=== PATIENT | male | born 1945 | race Caucasian/White ===

== ENCOUNTER 2016-12-22 05:13 | Day surgery (SDC) | payer OTHER ==
[~2016-12-22] VITALS: Ht 182.9 cm; Wt 96.2 kg
--- NOTE | ~2016-12-22 | O ---
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 PROCEDURE: Lamellar keratectomy, left eye, with excision of conjunctival lesion and conjunctivoplasty repair of defect. SURGEON: Ant Maxwell M.D. PAINT SPRAY INSPECTOR: None. ANESTHESIA: MAC. COMPLICATIONS: None. INDICATIONS FOR SURGERY: This pleasant 71-year-old gentleman underwent resection of a lesion on the surface of his left eye in April of this year. The lesion turned out to be primary acquired melanosis with atypia. Since that time, the lesion has recurred and is now also on the cornea. Excision of the lesion on both surgical sites is planned along with subsequent reconstruction. Postoperatively, he is going to be treated with a topical Interferon preparation in order to attempt to reduce his risk of further recurrence. Informed consent was obtained to include but not limited to the potential risk for loss of vision, bleeding, infection, failure to improve the problem and the potential need for further surgery or treatment. DESCRIPTION OF PROCEDURE: The patient was taken to the operating room where 2% Xylocaine with epinephrine mixed with equal parts of 0.75% Marcaine with Wydase was administered transconjunctivally and transcutaneously to the left eye. The patient was subsequently prepped and draped in the usual sterile fashion. A moistened sponge was placed over the right eye, while a lid speculum was placed on the left. A corneal light protector was then placed. The operating microscope was then rotated into position. Radial incisions were then made above and below the area of recurrence, which was at 3 o'clock in the right eye. The incisions were drawn back to the area of the insertion of the lateral rectus muscle. The dissection then carried anteriorly up on to the limbus where the lesion was amputated there. [address] [address] OPERATIVE REPORT Name: LING RANDOLPH Room #: 150-6 [facility].#: [id number] Admission: 12/22/16 Attend Phys: Ant Maxwell MD Discharge: Date of : 47 Report #: [id number] Utilizing the operating microscope, lamellar keratectomy was then performed removing the tissue off the surface of the cornea. A carmelo tip bur was then used to smooth this and draw the epithelium back to a normal appearing contour. Hemostasis was achieved with diligent pinpoint cautery. A conjunctival flap was then elevated and resuspended in the area of the defect. Multiple interrupted 6-0 plain gut sutures with buried knots were used in this area to close the conjunctivoplasty. The wound was then cleaned and dressed with erythromycin ophthalmic ointment, followed by Telfa pad and two eye pads. The patient was subsequently transported to the recovery area having tolerated the procedures well with no anesthetic or operative complications being noted. By: [id number] Ant Maxwell MD /nt
--- NOTE | ~2016-12-22 | S ---
[facility] [address] [place] [address] SURGICAL PATH RPT PROCEDURE Name: LING RANDOLPH Room #: [facility]P [facility] M.R.#: [id number] Admission: 12/22/16 Date of : 47 Discharge: 12/22/16 Report #: [id number] Path Case #: [id number] PATHOLOGY REPORT DRAFT COLLECTION DATE: 12/22/2016 RECEIVED DATE: 12/22/2016 SPECIMEN(S) RECEIVED: A.Left eye primary acquired melanosis with atypia
[~2016-12-22 05:13] MED LIST: ACYCLOVIR 400400 MG PO; ALIGN4 MG PO; IBUPROFEN 200200 M1 PO; MEDROL DOSPAK21 TAB PO; NOHOMEMEDICATIONS; ZANTAC 150MG T150 M1 PO; ZYRTEC10 M2 PO
[2016-12-22 11:44] VITALS: BP 143/85
== END 2016-12-22 15:30 | disposition home or self-care (01) ==
LOC: OR 05:13 → TBA 05:13 → OR 14:50
DX: H57.8 Other specified disorders of eye and adnexa (principal); Z88.0 Allergy status to penicillin; Z88.2 Allergy status to sulfonamides; J45.909 Unspecified asthma, uncomplicated
CPT/HCPCS: 50010; 50101; 50398; 51636; 56531; 62110; 62850; 70005